=== PATIENT | male | born 1990 | race Caucasian/White ===

== ENCOUNTER 2019-09-03 16:26 | Emergency (ER) | payer BC ==
[2019-09-03] MEDS ORDERED: Ibuprofen 200 MG TAB ONE (16:38)
[2019-09-03] MEDS ORDERED: Acetaminophen 325 MG TAB ONE (16:38)
== END 2019-09-03 17:45 | disposition home or self-care (01) ==
LOC: NAV ERS 16:26
DX: H66.41 Suppurative otitis media, unspecified, right ear (principal); H72.91 Unspecified perforation of tympanic membrane, right ear; J06.9 Acute upper respiratory infection, unspecified; F41.9 Anxiety disorder, unspecified
CPT/HCPCS: 99283